=== PATIENT | female | born 1955 | race Caucasian/White ===

== ENCOUNTER 2020-05-14 22:39 | Inpatient (IN) ==
--- NOTE | 2020-05-14 23:17 | ERNOTE ---
Trauma/Assault HPI - General Stated Complaint: FALL Time Seen by Provider: 05/14/20 23:08 Source: patient Exam Limitations: no limitations - Immun/Allergies/Home Medications Immunizations: IMMUNIZATION HX Immunizations Up to Date No History of Influenza Vaccine No Hx Pneumococcal Vaccination No Allergies/Adverse Reactions: Allergies No Known Allergies Allergy (Unverified 05/14/20 23:16) Home Medications: HOME MEDICATIONS Atenolol [Tenormin] 50 mg PO DAILY 05/14/20 [Last Taken Unknown] Hydrochlorothiazide 12.5 mg PO DAILY 05/14/20 [Last Taken Unknown] [place] Oil/[place]-3 Fatty Acids [Fish Oil] 1,200 mg PO DAILY 05/14/20 [Last Taken Unknown] - History of Present Illness Narrative: Patient states she slipped on wet concrete at work falling onto her left side. She is currently lying on her right side and does not want to be moved from that position. She denies any other injuries. She denies loss of consciousness. Location Occurred: Reports: work Pain Location: Reports: lower extremity Method of Injury: Reports: fall Severity: moderate Modifying Factors - (Improves): Reports: immobilization Modifying Factors - (Worsens): Reports: movement Loss of Consciousness: Reports: no loss of consciousness Associated Symptoms - Trauma: Reports: denies symptoms Review of Systems - Review of Systems Constitutional: Absent: recent illness, fever, chills EYE: Absent: vision changes ENT: Absent: nose congestion, nasal drainage Respiratory: Absent: shortness of breath, cough Cardiology: Absent: chest pain Gastrointestinal/Abdominal: Absent: nausea, vomiting Musculoskeletal: Present: See HPI, joint pain. Absent: back pain, neck pain Skin: Absent: rash, change in color Neurological: Absent: headache, dizziness/light-headedness, numbness, tingling Medical History (Last Reviewed 05/15/20 @ 00:46 by Elpidio Byrne DO) Hypertension Surgical History: Surgical History (Last Reviewed 05/15/20 @ 00:46 by Elpidio Byrne DO) H/O: hysterectomy Hx of tonsillectomy Social History: (Last Reviewed 05/15/20 @ 00:46 by Elpidio Byrne DO) Tobacco: Smoking Status: Current every day smoker Smoking packs per day: 1 Alcohol: alcohol intake: current alcohol intake frequency: a few times a week Substance Use: substance use type: does not use Physical Exam - Physical Exam General Appearance: Present: wd/wn, alert, no apparent distress Head Exam: Present: normal inspection, no evidence of injury Eye Exam: Normal inspection: bilateral Neck: Present: normal inspection, nontender, supple, full range of motion Respiratory: Present: no respiratory distress, no accessory muscle use Gastrointestinal/Abdominal: Present: nontender, nondistended, soft Back Exam: Present: normal inspection, normal range of motion, no CVA tenderness, no vertebral tenderness Extremity Exam: Present: normal except - - Enteritis of left hip and left knee. Otherwise nontender. No obvious deformities or shortening.. Absent: joint redness, joint swelling Neurological Exam: Present: alert, oriented, normal mood/affect, no motor/sensory deficits Skin Exam: Present: normal color, warm/dry Lymphatic Exam: Present: no adenopathy Detailed Trauma Exam Best Eye Response ([place]): (4) open spontaneously Best Verbal Response ([place]): (5) oriented Best Motor Response ([place]): (6) obeys commands [place] Total: 15 Nexus Clearance: Present: Nexus criteria negative - C-Spine cleared by: Neg history & exam - T, L-Spine cleared by: Neg hx and exam - Long Board: Back visualized Progress - Results and Orders Patient's Lab Results:: I have reviewed the patient's lab results. Results and Orders: Laboratory Tests 05/15/20 05/15/20 01:25 01:25 WBC 16.1 H Hgb 13.6 Hct 39.9 Plt Count 146 L Neutrophils % 80.2 H Sodium 139 Potassium 2.9 L Chloride 103 Carbon Dioxide 24.8 Anion Gap 14.1 H BUN 20 Creatinine 1.03 Random Glucose 128 H Calcium 9.3 Total Bilirubin 0.5 AST 15 ALT 20 - Vital Signs Patient's Vital Signs:: I have reviewed the patient's vital signs. Vital Signs: Vital Signs 05/14/20 22:46 Temperature 37.6 C Pulse Rate 74 Respiratory Rate 16 Blood Pressure 126/83 O2 Sat by Pulse Oximetry 98 - Progress/Reassessment Chief Complaint: Fall Progress Note-Subjective: 05/15/20 00:[address] Kumar he agrees to accept the patient and assess for surgery in the morning. He would like medicine to admit the patient and he will consult. I spoke with Dr. Blanchard and she agrees to accept the patient and clear for surgery in the morning. Departure Clinical Impression: Intertrochanteric fracture of left femur Qualifiers: Encounter type: initial encounter Fracture type: closed Fracture alignment: displaced Qualified Code(s): S72.142A - Displaced intertrochanteric fracture of left femur, initial encounter for closed fracture - Departure Disposition: Still a patient Condition: Stable Critical Care Time - Critical Care Critical Time Spent:: No
[2020-05-14] MEDS ORDERED: MORPHINE SULFATE 2 MG/ML DISP.SYRIN IV ONE (23:47)
[2020-05-15 01:40] LABS: Hematocrit 39.9 % (37.0-47.0); Hemoglobin 13.6 gm/dL (12.5-16.0); Mean Cell Volume 88.7 fl (78-100); Mean Corpuscular Hemoglobin 30.2 pg (27-31); Mean Corpuscular Hgb Conc 34.1 g/dl (32-36); Mean Platelet Volume 11.4 fl (8-12.5); Neutrophil # 12.9 K/mm3 (1.3-6.0); Neutrophil % 80.2 % (42-75.0); Platelet Count 146 K/mm3 (150-450); Red Cell Distribution Width 11.8 % (11.5-14.0); White Blood Count 16.1 K/mm3 (4.0-10.5)
[2020-05-15 01:54] LABS: Albumin * 3.7 gm/dl (3.4-5.0); Anion Gap 14.1 mmol/L (6.8-13.8); BUN/Creatinine Ratio 19.4 (9.0-21.6); Bilirubin, Total 0.5 mg/dL (0.0-1.1); Ca. Corrected For Albumin 9.2 mg/dL (8.4-10.2); Calcium * 9.3 mg/dL (7.9-10.9); Carbon Dioxide 24.8 mmol/L (24-32.6); Potassium 2.9 mmol/L (3.4-4.6); Total Protein 6.5 gm/dL (6.2-8.2)
[2020-05-15] MEDS ORDERED: POTASSIUM BICARBONATE/CIT AC 25 MEQ TABLET.EFF PO ONE (02:33)
[2020-05-15] MEDS ORDERED: ONDANSETRON HCL/PF 2 MG/ML VIAL IV PRN (02:35)
[2020-05-15] MEDS: MORPHINE SULFATE 2 MG/ML DISP.SYRIN IV PRN ×3 (02:52→09:12)
[2020-05-15] MEDS: NORMAL SALINE 1,000 ML IV PRN ×2 (03:27→16:43)
--- NOTE | 2020-05-15 08:07 | CONS ---
- Reason for consultation (1) Intertrochanteric fracture of left femur Date of Service: 05/15/20 HPI - General Date of Service: 05/15/20 Narrative: 64-year-old female presents status post fall to the ED. X-rays revealed a left intertrochanteric femur fracture. Patient notes no previous hip injuries. She notes her pain is worse with movement better with rest. She rates her pain is well controlled at this time. She denies any other significant radiating symptoms or bothering factors. She otherwise denies any other significant history, she is not on any significant blood thinners. Source: patient Exam Limitations: no limitations - History of Present Illness Allergies/Adverse Reactions: Allergies No Known Allergies Allergy (Unverified 05/15/20 03:04) Home Medications: Home Medications Medication Instructions Recorded Last Taken Atenolol [Tenormin] 50 mg PO DAILY 05/14/20 Unknown Hydrochlorothiazide 12.5 mg PO DAILY 05/14/20 Unknown [place] Oil/[place]-3 Fatty Acids 1,200 mg PO DAILY 05/14/20 Unknown [Fish Oil] Irqdo-Zifzahm-Ohzrarsl Tablet 1 tab DAILY 05/15/20 Unknown Medications - Medications Current Medications: Current Medications Sodium Chloride (Sodium Chloride 0.9%) 1,000 mls @ 75 mls/hr IV .[id number] PRN PRN Reason: HYDRATION Stop: 06/14/20 02:34 Last Admin: 05/15/20 03:27 Dose: 75 mls/hr Documented by: Morphine Sulfate (Morphine Sulfate) 1 mg IV Q1H PRN PRN Reason: Pain Stop: 06/14/20 02:35 Last Admin: 05/15/20 06:43 Dose: 1 mg Documented by: Physical Examination - Exam Vital Signs: Vital Signs - Last Taken Temp 37.2 C 05/15/20 06:55 Pulse 86 05/15/20 06:55 Resp 12 05/15/20 06:55 BP 121/60 05/15/20 06:55 Pulse Ox 94 05/15/20 06:55 O2 Oxygen Delivery Method Room Air Constitutional: Present: Alert, Oriented x3, Cooperative, No distress Respiratory: Present: no respiratory distress Extremity: Present: other - Left lower extremity--> sensation intact light touch, 5/5 plantar flexion dorsiflexion ankle, distal capillary refill brisk, no obvious wounds, mild deformity of external rotation at the hip Skin Exam: Present: normal color, warm/dry Appearance: Present: appropriate appearance Eye contact: Present: cooperative Thoughts: Present: normal thought pattern - Results and Findings: Lab/Microbiology results last 24 hrs: Abnormal/Pending Laboratory Last 24 HRS 05/15/20 05/15/20 01:25 01:25 WBC 16.1 H Plt Count 146 L Immature Gran % (Auto) 0.70 H Immature Gran # (Auto) 0.11 H Neutrophils % 80.2 H Lymphocytes % 13.9 L Neutrophils # 12.9 H Potassium 2.9 L Anion Gap 14.1 H Est GFR (Non-Af Amer) 57 L Random Glucose 128 H - Assessments/Findings (1) Intertrochanteric fracture of left femur Problem: Acute Qualifiers: Encounter type: initial encounter Fracture type: closed Fracture alignment: displaced Qualified Code(s): S72.142A - Displaced intertrochanteric fracture of left femur, initial encounter for closed fracture Plan - Plan Plan: 64-year-old female admitted with a left intertrochanteric femur fracture. Patient is otherwise fairly healthy, awaiting medicine clearance. Discussed with patient conservative or surgical intervention as well as risk versus benefits including but not limited to infection, bleeding, malunion versus nonunion fracture healing, continued pain, reaction stroke risk, inherent risk of surgery. Patient expressed understanding wishes to proceed with left ce phalo-medullary nailing of femur fracture. Procedure plan to do on 05/15/2020 pending medical clearance. Patient expressed understanding and wishes to proceed with this option. Consent was obtained all questions were answered. Patient was COVID-19 tested prior to admission. Patient will continue with pain management and will continue in the hospital stay status post surgery.
[2020-05-15] MEDS: RINGER'S SOLUTION,LACTATED 1,000 ML IV PRN ×2 (08:44→13:40)
--- NOTE | 2020-05-15 09:09 | ANES ---
Anesthesia Pre Procedure Eval Vitals/Labs: Last Vital Signs Temp 37.2 C 05/15/20 06:55 Pulse 86 05/15/20 06:55 Resp 12 05/15/20 06:55 BP 121/60 05/15/20 06:55 Pulse Ox 94 05/15/20 06:55 HOME MEDICATIONS Atenolol [Tenormin] 50 mg PO DAILY 05/14/20 [Last Taken Unknown] Hydrochlorothiazide 12.5 mg PO DAILY 05/14/20 [Last Taken Unknown] [place] Oil/[place]-3 Fatty Acids [Fish Oil] 1,200 mg PO DAILY 05/14/20 [Last Taken Unknown] Tshix-Prdkkvl-Rqveipxp Tablet 1 tab DAILY 05/15/20 [Last Taken Unknown] Allergies/Adverse Reactions: Allergies Allergy/AdvReac Type Severity Reaction Status Date / Time No Known Allergies Allergy Unverified 05/15/20 03:04 - Planned Procedure Planned Procedure: L INTERTROCHANTERIC HIP FX Medication List Reviewed:: Yes Allergies Verified: Yes Medical History (Last Reviewed 05/15/20 @ 09:07 by Andre Oden CRNA) Hypertension Surgical History (Last Reviewed 05/15/20 @ 09:07 by Andre Oden CRNA) H/O: hysterectomy Hx of tonsillectomy - Family Anesthesia History Family History:: no untoward family reactions to anesthesia - Airway/Neck/Teeth Within Normal Limits:: Yes Denture Type: Partial lower Neck Exam: full range of motion Mallampatti Score: 2 Thyromental (T-M) distance: > 6 cm Mandibulo Hyoid distance: > 3 cm - Respiratory Respiratory Physical: lungs clear Smoking Status: Current every day smoker Discussed smoking cessation including day of surgery: Yes Sleep Apnea currently treated: No Sleep Apnea by current assessment: No - Cardiovascular Cardiac History: hypertension Tolerate Activity: Good Heart Sounds: S1 & S2, Regular - Gastrointestinal NPO since: [place] - Anesthesia Assessment and Plan ASA Class: PS, II Anesthesia Type Plan: Spinal Planned difficult intubation/equipment available: No
[2020-05-15] MEDS ORDERED: POTASSIUM CHLORIDE 20 MEQ in DEXTROSE 5%-0.5 NORMAL SALINE 990 ML IV SCH (10:00)
--- NOTE | 2020-05-15 10:02 | HP ---
Chief Complaint - Chief Complaint Date of Service: 05/15/20 Time of Service: 09:27 Chief Complaint: Left hip pain History of Present Illness: 64-year-old female with a past medical history of hypertension, smokes half a pack a day presents from work status post fall. She is was found to have a left intertrochanteric fracture of her acute, displaced, angulated, mildly comminuted left intertrochanteric enteric fracture on x-ray. Knee x-ray was negative for fracture. Chest x-ray was unremarkable. Vitals are stable, blood work shows mild hypokalemia at 2.9, a leukocytosis of 16.1. Orthopedic surgery was consulted. Medical History (Last Reviewed 05/15/20 @ 09:07 by Andre Oden CRNA) Hypertension Surgical History: Surgical History (Last Reviewed 05/15/20 @ 09:07 by Andre Oden CRNA) H/O: hysterectomy Hx of tonsillectomy Family History: Family History (Last Updated 05/15/20 @ 10:03 by Megan Blanchard MD) Other Family history non-contributory Social History: (Last Reviewed 05/15/20 @ 03:04 by Nhi Hoff RN) Tobacco: Smoking Status: Current every day smoker Smoking packs per day: 1 Alcohol: alcohol intake: current alcohol intake frequency: a few times a week Substance Use: substance use type: does not use Review Of Systems (GEN) - Review of Systems Generalized/Overall Review: Absent: Chills, Fever Respiratory: Absent: Shortness of Breath Cardiac: Absent: Chest Pain, Palpitations Abdominal: Absent: Abdominal Pain Musculoskeletal: Present: Joint Pain - Left hip Misc: All systems neg except as marked Immunizations: IMMUNIZATION HX Immunizations Up to Date No History of Influenza Vaccine No Hx Pneumococcal Vaccination No Allergies/Adverse Reactions: Allergies Allergy/AdvReac Type Severity Reaction Status Date / Time No Known Allergies Allergy Unverified 05/15/20 03:04 Home Medications: HOME MEDICATIONS Atenolol [Tenormin] 50 mg PO DAILY 05/14/20 [Last Taken Unknown] Hydrochlorothiazide 12.5 mg PO DAILY 05/14/20 [Last Taken Unknown] [place] Oil/[place]-3 Fatty Acids [Fish Oil] 1,200 mg PO DAILY 05/14/20 [Last Taken Unknown] Nxwrl-Ooqhraj-Knszlqfz Tablet 1 tab DAILY 05/15/20 [Last Taken Unknown] Exam - Exam Vital Signs: Vital Signs - Last Taken Temp 37.2 C 05/15/20 06:55 Pulse 86 05/15/20 06:55 Resp 12 05/15/20 06:55 BP 121/60 05/15/20 06:55 Pulse Ox 94 05/15/20 06:55 Constitutional: Present: Alert, Cooperative, Well developed, Well nourished, No distress, Middle aged ENT Exam: Present: hearing grossly normal, moist mucous membranes Eye Exam: bilateral eye: normal inspection, PERRL, EOMI Neck: Present: non-tender, supple. Absent: lymphadenopathy (R), lymphadenopathy (L) Respiratory: Present: lungs clear - Anterior lung farah bilaterally, no respiratory distress, no accessory muscle use, No wheezing. Absent: crackles, rhonchi Cardiovascular/Chest: Present: normal peripheral pulses, regular rate, rhythm, no edema, no murmur Peripheral Pulses: dorsalis-pedis (R): 1+, dorsalis-pedis (L): 1+ Abdomen: Present: Normal bowel sounds, soft, nontender Extremity: Present: no pedal edema, other - Left hip externally rotated. Skin Exam: Present: normal color, warm/dry Neurologic: Present: alert, normal mood/affect Appearance: Present: appropriate appearance, appropriate insight Eye contact: Present: cooperative Thoughts: Present: normal thought pattern, normal mood /affect Diagnostic Studies: Abnormal Lab Results 05/15/20 05/15/20 Range/Units 01:25 01:25 WBC 16.1 H (4.0-10.5) K/mm3 Plt Count 146 L (150-450) K/mm3 Immature Gran % (Auto) 0.70 H (0.001-0.429) % Immature Gran # (Auto) 0.11 H (0.000-0.0310) K/mm3 Neutrophils % 80.2 H (42-75.0) % Lymphocytes % 13.9 L (20-51) % Neutrophils # 12.9 H (1.3-6.0) K/mm3 Potassium 2.9 L (3.4-4.6) mmol/L Anion Gap 14.1 H (6.8-13.8) mmol/L Est GFR (Non-Af Amer) 57 L (60-130) mL/min Random Glucose 128 H (70-110) mg/dL Laboratory Results WBC 16.1 K/mm3 (4.0-10.5) H 05/15/20 01:25 RBC 4.50 M/mm3 (4.2-5.4) 05/15/20 01:25 Hgb 13.6 gm/dL (12.5-16.0) 05/15/20 01:25 Hct 39.9 % (37.0-47.0) 05/15/20 01:25 MCV 88.7 fl (78-100) 05/15/20 01:25 MCH 30.2 pg (27-31) 05/15/20 01:25 MCHC 34.1 g/dl (32-36) 05/15/20 01:25 RDW 11.8 % (11.5-14.0) 05/15/20 01:25 Plt Count 146 K/mm3 (150-450) L 05/15/20 01:25 MPV 11.4 fl (8-12.5) 05/15/20 01:25 Immature Gran % (Auto) 0.70 % (0.001-0.429) H 05/15/20 01:25 Immature Gran # (Auto) 0.11 K/mm3 (0.000-0.0310) H 05/15/20 01:25 Neutrophils % 80.2 % (42-75.0) H 05/15/20 01:25 Lymphocytes % 13.9 % (20-51) L 05/15/20 01:25 Monocytes % 4.8 % (0.0-9) 05/15/20 01:25 Eosinophils % 0.3 % (0.0-3.0) 05/15/20 01:25 Basophils % 0.1 % (0.0-1.0) 05/15/20 01:25 Nucleated RBC % 0.0 k/mm3 (0-1) 05/15/20 01:25 Neutrophils # 12.9 K/mm3 (1.3-6.0) H 05/15/20 01:25 Lymphocytes # 2.25 k/mm3 (1.5-3.5) 05/15/20 01:25 Monocytes # 0.8 k/mm3 (0.0-1.0) 05/15/20 01:25 Eosinophils # 0.1 k/mm3 (0.0-0.7) 05/15/20 01:25 Absolute Basophils 0.0 k/mm3 (0.0-0.1) 05/15/20 01:25 Sodium 139 mmol/L (132-142) 05/15/20 01:25 Plasma Sodium 139 mmol/L (130-142) 05/15/20 01:25 Potassium 2.9 mmol/L (3.4-4.6) L 05/15/20 01:25 Chloride 103 mmol/L (97-106) 05/15/20 01:25 Carbon Dioxide 24.8 mmol/L (24-32.6) 05/15/20 01:25 Anion Gap 14.1 mmol/L (6.8-13.8) H 05/15/20 01:25 BUN 20 mg/dL (3-23) 05/15/20 01:25 Creatinine 1.03 mg/dL (0.4-1.4) 05/15/20 01:25 Est GFR (Non-Af Amer) 57 mL/min (60-130) L 05/15/20 01:25 BUN/Creatinine Ratio 19.4 (9.0-21.6) 05/15/20 01:25 Random Glucose 128 mg/dL (70-110) H 05/15/20 01:25 Calcium 9.3 mg/dL (7.9-10.9) 05/15/20 01:25 Calcium Adj for Albumin 9.2 mg/dL (8.4-10.2) 05/15/20 01:25 Total Bilirubin 0.5 mg/dL (0.0-1.1) 05/15/20 01:25 AST 15 U/L (0-48) 05/15/20 01:25 ALT 20 U/L (19-67) 05/15/20 01:25 Alkaline Phosphatase 52 U/L (50-170) 05/15/20 01:25 Total Protein 6.5 gm/dL (6.2-8.2) 05/15/20 01:25 Albumin 3.7 gm/dl (3.4-5.0) 05/15/20 01:25 SARS-CoV-2 (PCR) Not detected (NotDetected) 05/15/20 01:25 Assessment/Plan - Narrative Narrative: 64-year-old female with a past medical history of hypertension, smokes half a pack a day presents from work status post fall. She is was found to have a left intertrochanteric fracture of her acute, displaced, angulated, mildly comminuted left intertrochanteric enteric fracture on x-ray. Knee x-ray was negative for fracture. Chest x-ray was unremarkable. Vitals are stable, blood work shows mild hypokalemia at 2.9, a leukocytosis of 16.1. Leukocytosis may be reactive secondary to the hip fracture. Orthopedic surgery was consulted. She is medically cleared for surgery. Plan #1 replete potassium as needed #2 continue with pain management #3 CBC and CMP in the morning #4 resume home medications tomorrow morning. #5 orthopedic surgery on board - Assessment/Plan (1) Intertrochanteric fracture of left femur Problem: Acute Qualifiers: Encounter type: initial encounter Fracture type: closed Fracture alignment: displaced Qualified Code(s): S72.142A - Displaced intertrochanteric fracture of left femur, initial encounter for closed fracture (2) Hypertension Problem: Acute Qualifiers: Hypertension type: essential hypertension Qualified Code(s): I10 - Essential (primary) hypertension (3) Leukocytosis Problem: Acute (4) Hypokalemia Problem: Acute
[2020-05-15] MEDS: POTASSIUM CHLORIDE IN WATER 100 ML IV SCH ×2 (10:45→12:02)
[2020-05-15] MEDS ORDERED: ceFAZolin SODIUM 1 GM VIAL ONE (12:10)
[2020-05-15] MEDS ORDERED: MIDAZOLAM HCL/PF 5 MG/ML VIAL ONE (12:36)
[2020-05-15] MEDS ORDERED: BUPIVACAINE HCL/PF 10 ML VIAL ONE (12:37)
[2020-05-15] MEDS ORDERED: PROPOFOL VIAL IV ONE (12:37)
[2020-05-15] MEDS ORDERED: diphenhydrAMINE HCL 50 MG/ML VIAL IV PRN (15:54)
[2020-05-15] MEDS ORDERED: MAGNESIUM HYDROXIDE 30 ML UDC PO PRN (15:54)
[2020-05-15] MEDS ORDERED: MAG HYDROX/ALUMINUM HYD/SIMETH 30 ML UDC PO PRN (15:54)
[2020-05-15] MEDS ORDERED: ZOLPIDEM TARTRATE 5 MG TABLET PO PRN (15:54)
[2020-05-15] MEDS ORDERED: ACETAMINOPHEN 500 MG TABLET PO PRN (15:54)
--- NOTE | 2020-05-15 16:02 | OR ---
Operative Report - Dictated Report Narrative: Date: 05/15/2020 Surgeon: Davide Kumar M.D. Leaded Glass Installer: Tereso Lema PA-C (provided an essential set of skilled educated handset assisted with transfer, positioning, prepping, draping, placement of instruments, insertion of implants, irrigation, closure wounds, and placement of dressings all which could not be performed by the available surgical crew) Preoperative diagnosis: Closed comminuted displaced left sub-and ramirez- trochanteric femur fracture Postoperative diagnosis: Closed comminuted displaced left sub-and ramirez- trochanteric femur fracture Operations and procedures: 1. Closed reduction, cephalo-medullary fixation left comminuted sub-and ramirez- trochanteric femur fracture (please add 2 2 modifier due to the fact that this fracture was more unstable and difficult to fix compared to the standard fracture requiring additional time, risk, assistance, implants) 2. Intraoperative interpretation of radiographs Anesthesia: Spinal Specimens: None Estimated blood loss: 150 Milliliters Retained implants: [employer] Trigen InterTAN 130 degree size 10 mm by 38 centimeter nail with 100 millimeter lag screw and 95 millimeter compression screw, with distal locking screws, [employer] cerclage cable Complications: None Indications for procedure: Mrs. Celaya is a 64-year-old female who injured the left leg after a ground- level fall sustained at work. They were admitted to the hospital after being evaluated in the emergency department. Once the medical provider felt that they were stable for surgical treatment, the risks and benefits alternatives were discussed. The risks of , blood clots, bleeding, infection, nerve/tendon/blood vessel injury, malunion, nonunion, failure of implants, painful implants, arthrosis, and need for additional procedures were discussed. The extremity was marked and consent was obtained on the floor. Procedure: After marking the operative extremity on the floor, the patient was taken to the operating room. A timeout was performed. IV antibiotics consisting of Ancef were administered. A spinal anesthetic was induced by anesthesia, and the patient was then placed onto a fracture table with a well-padded perineal post. The nonoperative leg was placed in a well-padded traction boot in slight ext ension without any traction with an SCD on the leg. The operative leg was placed in a well-padded traction boot. Longitudinal traction, internal rotation, and flexion were utilized in order to reduce the fracture. Preliminary images were attained utilizing C-arm in both the AP and lateral views. This confirmed that we had obtained adequate visualization of the fracture as well as reduction. Next the hip was then prepped and draped in a standard sterile fashion. Next the guidewire was placed percutaneously proximal to the greater trochanter to gian a starting point at the tip of the greater trochanter centered on the lateral view. This was passed down to the level below the lesser trochanter. A scalpel was utilized in order to dissect down to the greater trochanter in order to place the soft tissue protector down to bone. The entry drill was then placed down the proximal femur to the level of the lesser trochanter. A guidewire was then passed to the distal femur ensuring this was in the confines of the femur. This was measured. A series of reamers up to 12 mm was utilized with good cortical chatter. The proper size nail was then selected and impacted into place. The outrigger was utilized in order to confirm the appropriate depth of the nail. Initially the nail was placed however this displaced the subtrochanteric portion of the fracture and thus the nail was removed and a cerclage cable was utilized in order to reduce and stabilize the lower section of the fracture. This required a larger lateral incision as well as significant more dissection in order to safely pass the cable around the femur. We then tensioned the cable and preliminarily secured it. The nail was then re- impacted. This resulted in a much better reduced fracture and better alignment. Using the alignment device on the outrigger, an incision was made over the lateral femur. Sharp dissection was carried through the iliotibial band down to the proximal femur. The guidewire was placed into the femoral head in a center- center position on AP and lateral views. The tip-apex distance of less than 25 mm combined was obtained. Once we felt that we had placed a guidewire in the appropriate position, it was measured. Next the compression screw site was drilled through the lateral femoral cortex. This was then drilled down to the appropriate depth, again confirming that we are within the confines the bone. The derotational bar was then placed and the lag screw was drilled. The lag screw was then secured in place seating fully ensuring that we were within the confines of the bone. The compression screw was then inserted allowing for compression while releasing the traction on the leg. Using C-arm this was visualized to allow for compression across the fracture site. Once is felt that we had adequately stabilized the intertrochanteric fracture, the distal interlocking screw was placed in a static and dynamic position after obtaining perfect circles and doing a freehand drilling. It was confirmed to be the appropriate length and within the nail on both AP and lateral views. The nail was secured allowing for controlled compression and the outrigger was removed. The wounds were then thoroughly irrigated. Final images were obtained. The hip was placed through range of motion and showed no crepitance. The cerclage cable was cut flush. The deep fascia was closed with 0 Vicryl, the subcutaneous tissue with 3-0 Vicryl, and the skin was closed with contreras. Sterile dressings of Xeroform, 4 x 4, and tape were applied. All sponge, sharp, and instrument counts were correct prior to closing the wounds. The patient was then awoken and transferred to the postanesthesia care unit in stable condition.
--- NOTE | 2020-05-15 16:17 | ANES ---
Post Anesthesia Discharge - Transfer of Care Transfer of Care handoff given to nurse: Yes - Discharge from PACU Discharge from PACU when meets criteria: Yes - Alert and comfortable.
--- NOTE | 2020-05-15 16:38 | ANES ---
Post Anesthesia Assessment - Vital Signs Vitals: Last Vital Signs Temp 36.6 C 05/15/20 16:30 Pulse 72 05/15/20 16:30 Resp 16 05/15/20 16:30 BP 120/85 05/15/20 16:30 Pulse Ox 99 05/15/20 16:30 Airway Patency: Normal - Mental Status Level Of Consciousness: Awake, Alert, Appropriate - Pain Level Pain Score: 0 - N/V Assessment Nausea/Vomiting Presence: None Dehydration:: No
[2020-05-15] MEDS: ceFAZolin SODIUM 1 GM in DEXTROSE 5 % IN WATER 100 ML IV SCH ×2 (17:00)
[2020-05-15] MEDS: SENNOSIDES/DOCUSATE SODIUM 1 TAB TABLET PO SCH (20:40)
[2020-05-15] MEDS: oxyCODONE HCL/ACETAMINOPHEN 1 TAB TABLET PO PRN (21:16)
[2020-05-16] MEDS: ceFAZolin SODIUM 1 GM in DEXTROSE 5 % IN WATER 100 ML IV SCH ×4 (00:02→05:11)
[2020-05-16] MEDS ORDERED: RINGER'S SOLUTION,LACTATED 1,000 ML IV PRN (06:00)
[2020-05-16] MEDS ORDERED: ceFAZolin SODIUM 1 GM VIAL IV PRN (06:00)
[2020-05-16 06:33] LABS: Albumin * 2.6 gm/dl (3.4-5.0); Anion Gap 11.3 mmol/L (6.8-13.8); BUN/Creatinine Ratio 14.5 (9.0-21.6); Bilirubin, Total 0.7 mg/dL (0.0-1.1); Ca. Corrected For Albumin 8.9 mg/dL (8.4-10.2); Calcium * 8.1 mg/dL (7.9-10.9); Carbon Dioxide 25.2 mmol/L (24-32.6); Potassium 3.5 mmol/L (3.4-4.6); Total Protein 5.1 gm/dL (6.2-8.2)
[2020-05-16 06:37] LABS: Hematocrit 29.5 % (37.0-47.0); Hemoglobin 10.1 gm/dL (12.5-16.0); Mean Cell Volume 89.9 fl (78-100); Mean Corpuscular Hemoglobin 30.8 pg (27-31); Mean Corpuscular Hgb Conc 34.2 g/dl (32-36); Mean Platelet Volume 11.5 fl (8-12.5); Neutrophil # 5.6 K/mm3 (1.3-6.0); Neutrophil % 67.6 % (42-75.0); Platelet Count 99 K/mm3 (150-450); Red Blood Count 3.28 M/mm3 (4.2-5.4); Red Cell Distribution Width 11.9 % (11.5-14.0); White Blood Count 8.3 K/mm3 (4.0-10.5)
[2020-05-16] MEDS: oxyCODONE HCL/ACETAMINOPHEN 1 TAB TABLET PO PRN ×3 (06:52→17:47)
[2020-05-16] MEDS: MULTIVITAMIN/IRON/FOLIC ACID 1 TAB TABLET PO SCH (10:34)
[2020-05-16] MEDS: HYDROCHLOROTHIAZIDE 12.5 MG CAPSULE PO SCH (10:34)
[2020-05-16] MEDS: ATENOLOL 50 MG TABLET PO SCH (10:34)
--- NOTE | 2020-05-16 11:17 | PN ---
Subjective - Date and Time Seen Date: 05/16/20 Time: 09:48 Subjective Narrative: Left hip pain with movement. Objective - Review of Systems Generalized/Overall Review: Denies: Chills, Fever Respiratory: Denies: Shortness of Breath Cardiac: Denies: Chest Pain Abdominal: Denies: Abdominal Pain Musculoskeletal Complaints: Reports: Joint Pain Misc: All systems neg except as marked - Vitals Vitals: Last Vital Signs Temp 36.8 C 05/16/20 10:00 Pulse 85 05/16/20 10:34 Resp 18 05/16/20 10:00 BP 121/57 05/16/20 10:34 Pulse Ox 100 05/16/20 10:00 - Abnormal Lab Findings Abnormal Lab Findings: Abnormal Lab Results 05/16/20 05/16/20 Range/Units 06:15 06:15 RBC 3.28 L (4.2-5.4) M/mm3 Hgb 10.1 L (12.5-16.0) gm/dL Hct 29.5 L (37.0-47.0) % Plt Count 99 L (150-450) K/mm3 Monocytes % 10.3 H (0.0-9) % Random Glucose 142 H (70-110) mg/dL ALT 17 L (19-67) U/L Alkaline Phosphatase 40 L (50-170) U/L Total Protein 5.1 L (6.2-8.2) gm/dL Albumin 2.6 L (3.4-5.0) gm/dl - Exam Constitutional: Present: Alert, Cooperative, Well developed, Well nourished, No distress, Middle aged ENT Exam: Present: hearing grossly normal, moist mucous membranes Neck: Present: non-tender, supple. Absent: lymphadenopathy (R), lymphadenopathy (L) Respiratory: Present: lungs clear, no respiratory distress, no accessory muscle use, No wheezing. Absent: crackles, rhonchi Cardiovascular/Chest: Present: normal peripheral pulses, regular rate, rhythm, no murmur Abdomen: Present: Normal bowel sounds, soft, nontender Extremity: Present: no pedal edema, other - Dressing in place on left lateral hip Skin Exam: Present: normal color, warm/dry Neurologic: Present: alert, normal mood/affect Appearance: Present: appropriate appearance Eye contact: Present: cooperative Thoughts: Present: normal thought pattern, normal mood /affect Cauti Physician Documentation - Urinary Catheter Management Urethral ([place]) Date of Insertion: 05/15/20 Time of Insertion: 01:41 Date of Removal: 05/16/20 Time of Removal: 08:33 Assessment/Plan Plan Narrative: 64-year-old female with a past medical history of hypertension, smokes half a pack a day presents from work status post fall. She is was found to have a left intertrochanteric fracture of her acute, displaced, angulated, mildly comminuted left intertrochanteric enteric fracture on x-ray. Knee x-ray was negative for fracture. Chest x-ray was unremarkable. Vitals are stable, blood work shows mild hypokalemia at 2.9, a leukocytosis of 16.1. Leukocytosis may be reactive secondary to the hip fracture. Orthopedic surgery was consulted. She is status post left closed reduction, cephalo-medullary fixation left comminuted sub-and peritrochanteric femur fracture on May 15, 2020. She is doing well and is started physical therapy no bowel movement today. She is eating and drinking well. She is urinating. Pain is controlled with Percocet. Plan #1 Potassium has normalized, replete potassium as needed #2 continue with pain management and bowel regimen #3 CBC and CMP in the morning #4 resume home medications #5 Continue rehab plan per orthopedic surgery #6 continue with physical therapy and Occupational Therapy - Problems/Diagnosis (1) Intertrochanteric fracture of left femur Problem: Acute Qualifiers: Encounter type: initial encounter Fracture type: closed Fracture alignment: displaced Qualified Code(s): S72.142A - Displaced intertrochanteric fracture of left femur, initial encounter for closed fracture (2) Hypertension Problem: Acute Qualifiers: Hypertension type: essential hypertension Qualified Code(s): I10 - Essential (primary) hypertension (3) Leukocytosis Problem: Acute (4) Hypokalemia Problem: Acute
--- NOTE | 2020-05-16 11:30 | PN ---
Subjective - Date and Time Seen Date: 05/16/20 Time: 07:40 Subjective Narrative: Patient overall reports no acute events. She states her pain is significantly improved from yesterday. Patient has not been up and ambulated yet with physical therapy. She denies any other acute concerns. She overall notes her pain is well controlled. She does not note any other significant radiating factors or modifying events. Objective - Vitals Vitals: Last Vital Signs Temp 36.8 C 05/16/20 10:00 Pulse 85 05/16/20 10:34 Resp 18 05/16/20 10:00 BP 121/57 05/16/20 10:34 Pulse Ox 100 05/16/20 10:00 - Abnormal Lab Findings Abnormal Lab Findings: Abnormal Lab Results 05/16/20 05/16/20 Range/Units 06:15 06:15 RBC 3.28 L (4.2-5.4) M/mm3 Hgb 10.1 L (12.5-16.0) gm/dL Hct 29.5 L (37.0-47.0) % Plt Count 99 L (150-450) K/mm3 Monocytes % 10.3 H (0.0-9) % Random Glucose 142 H (70-110) mg/dL ALT 17 L (19-67) U/L Alkaline Phosphatase 40 L (50-170) U/L Total Protein 5.1 L (6.2-8.2) gm/dL Albumin 2.6 L (3.4-5.0) gm/dl - Exam Constitutional: Present: Alert, Cooperative, No distress Respiratory: Present: no respiratory distress Extremity: Present: other - Left lower extremity--> bandages clean/dry/intact, sensation intact light touch, capillary refill brisk, diffuse mild tenderness about left hip, 5/5 plantar flexion/dorsiflexion ankle Appearance: Present: appropriate appearance Eye contact: Present: cooperative Thoughts: Present: normal thought pattern Cauti Physician Documentation - Urinary Catheter Management Urethral ([place]) Date of Insertion: 05/15/20 Time of Insertion: 01:41 Date of Removal: 05/16/20 Time of Removal: 08:33 Assessment/Plan Plan Narrative: -64-year-old female postop day 1 status post closed reduction, cephalo-medullary fixation left comminuted sub-and ramirez-trochanteric femur fracture -Partial weightbearing left lower extremity, use of assistive device, approximately 25% -PT/OT progress within restrictions -P.o. diet as tolerated -P.o. pain medication PRN -DVT prophylaxis: SCDs in bed, KIP sanjive knee-high, 6 weeks of anticoagulation -Chronic medical conditions per medicine team -Disposition: Continue to monitor patient until all postoperative goals are met, continue to work towards discharge planning - Problems/Diagnosis (1) Intertrochanteric fracture of left femur Problem: Acute Qualifiers: Encounter type: initial encounter Fracture type: closed Fracture alignment: displaced Qualified Code(s): S72.142A - Displaced intertrochanteric fracture of left femur, initial encounter for closed fracture
[2020-05-16] MEDS: SENNOSIDES/DOCUSATE SODIUM 1 TAB TABLET PO SCH (20:25)
[2020-05-17] MEDS: oxyCODONE HCL/ACETAMINOPHEN 1 TAB TABLET PO PRN ×4 (00:05→20:22)
[2020-05-17 06:39] LABS: Hematocrit 28.2 % (37.0-47.0); Hemoglobin 9.5 gm/dL (12.5-16.0); Mean Corpuscular Hemoglobin 30.6 pg (27-31); Mean Corpuscular Hgb Conc 33.7 g/dl (32-36); Mean Platelet Volume 11.3 fl (8-12.5); Neutrophil # 4.7 K/mm3 (1.3-6.0); Neutrophil % 56.5 % (42-75.0); Platelet Count 100 K/mm3 (150-450); Red Cell Distribution Width 11.9 % (11.5-14.0); White Blood Count 8.4 K/mm3 (4.0-10.5)
[2020-05-17 06:50] LABS: Albumin * 2.6 gm/dl (3.4-5.0); Anion Gap 11.2 mmol/L (6.8-13.8); BUN/Creatinine Ratio 13.6 (9.0-21.6); Bilirubin, Total 0.5 mg/dL (0.0-1.1); Ca. Corrected For Albumin 9.2 mg/dL (8.4-10.2); Calcium * 8.4 mg/dL (7.9-10.9); Carbon Dioxide 27.1 mmol/L (24-32.6); Potassium 3.3 mmol/L (3.4-4.6); Total Protein 5.5 gm/dL (6.2-8.2)
[2020-05-17] MEDS: ATENOLOL 50 MG TABLET PO SCH (08:10)
[2020-05-17] MEDS: HYDROCHLOROTHIAZIDE 12.5 MG CAPSULE PO SCH (08:10)
[2020-05-17] MEDS: MULTIVITAMIN/IRON/FOLIC ACID 1 TAB TABLET PO SCH (08:11)
[2020-05-17] MEDS ORDERED: POTASSIUM BICARBONATE/CIT AC 25 MEQ TABLET.EFF PO ONE (09:25)
--- NOTE | 2020-05-17 12:55 | PN ---
Subjective - Date and Time Seen Date: 05/17/20 Time: 10:30 Subjective Narrative: Overall she is stable, she is eating and drinking well and continues to have some pain in her left hip with movement. Objective - Review of Systems Generalized/Overall Review: Denies: Chills, Fever Respiratory: Denies: Shortness of Breath Cardiac: Denies: Chest Pain Abdominal: Denies: Abdominal Pain Musculoskeletal Complaints: Reports: Joint Pain - Left hip Misc: All systems neg except as marked - Vitals Vitals: Last Vital Signs Temp 35.8 C L 05/17/20 10:49 Pulse 80 05/17/20 10:49 Resp 16 05/17/20 10:49 BP 105/60 05/17/20 10:49 Pulse Ox 95 05/16/20 23:00 - Abnormal Lab Findings Abnormal Lab Findings: Abnormal Lab Results 05/17/20 05/17/20 Range/Units 06:33 06:33 RBC 3.10 L (4.2-5.4) M/mm3 Hgb 9.5 L (12.5-16.0) gm/dL Hct 28.2 L (37.0-47.0) % Plt Count 100 L (150-450) K/mm3 Immature Gran % (Auto) 0.50 H (0.001-0.429) % Immature Gran # (Auto) 0.04 H (0.000-0.0310) K/mm3 Monocytes % 11.2 H (0.0-9) % Potassium 3.3 L (3.4-4.6) mmol/L ALT 17 L (19-67) U/L Alkaline Phosphatase 41 L (50-170) U/L Total Protein 5.5 L (6.2-8.2) gm/dL Albumin 2.6 L (3.4-5.0) gm/dl - Exam Constitutional: Present: Alert, Cooperative, Well developed, Well nourished, No distress, Middle aged ENT Exam: Present: hearing grossly normal Neck: Present: non-tender, supple. Absent: lymphadenopathy (R), lymphadenopathy (L) Respiratory: Present: lungs clear, no respiratory distress, no accessory muscle use, No wheezing. Absent: crackles, rhonchi Cardiovascular/Chest: Present: normal peripheral pulses, regular rate, rhythm, no edema, no murmur Abdomen: Present: Normal bowel sounds, soft, nontender Extremity: Present: no pedal edema Skin Exam: Present: normal color, warm/dry Neurologic: Present: alert, normal mood/affect Appearance: Present: appropriate appearance, appropriate insight Eye contact: Present: cooperative Thoughts: Present: normal thought pattern, normal mood /affect Cauti Physician Documentation - Urinary Catheter Management Urethral ([place]) Date of Insertion: 05/15/20 Time of Insertion: 01:41 Date of Removal: 05/16/20 Time of Removal: 08:33 Assessment/Plan Plan Narrative: 64-year-old female with a past medical history of hypertension, smokes half a pack a day presents from work status post fall. She is was found to have a left intertrochanteric fracture of her acute, displaced, angulated, mildly comminuted left intertrochanteric enteric fracture on x-ray. Knee x-ray was negative for fracture. Chest x-ray was unremarkable. Vitals are stable, blood work shows m ild hypokalemia at 2.9, a leukocytosis of 16.1. Leukocytosis may be reactive secondary to the hip fracture. Orthopedic surgery was consulted. She is status post left closed reduction, cephalo-medullary fixation left comminuted sub-and peritrochanteric femur fracture on May 15, 2020. She is doing well and is started physical therapy no bowel movement today. She is eating and drinking well. She is urinating. Pain is controlled with Percocet. Plan #1 Replete potassium as needed #2 continue with pain management and bowel regimen #3 CBC and CMP in the morning #4 resume home medications #5 Continue rehab plan per orthopedic surgery #6 continue with physical therapy and Occupational Therapy - Problems/Diagnosis (1) Intertrochanteric fracture of left femur Problem: Acute Qualifiers: Encounter type: initial encounter Fracture type: closed Fracture alignment: displaced Qualified Code(s): S72.142A - Displaced intertrochanteric fracture of left femur, initial encounter for closed fracture (2) Hypertension Problem: Acute Qualifiers: Hypertension type: essential hypertension Qualified Code(s): I10 - Ess ential (primary) hypertension (3) Leukocytosis Problem: Acute (4) Hypokalemia Problem: Acute
[2020-05-17] MEDS: RIVAROXABAN 20 MG TABLET PO SCH (13:22)
[2020-05-17] MEDS: SENNOSIDES/DOCUSATE SODIUM 1 TAB TABLET PO SCH (20:22)
[2020-05-18] MEDS: oxyCODONE HCL/ACETAMINOPHEN 1 TAB TABLET PO PRN ×2 (03:39→07:57)
[2020-05-18 06:46] LABS: Hematocrit 28.4 % (37.0-47.0); Hemoglobin 9.5 gm/dL (12.5-16.0); Mean Cell Volume 90.2 fl (78-100); Mean Corpuscular Hemoglobin 30.2 pg (27-31); Mean Corpuscular Hgb Conc 33.5 g/dl (32-36); Mean Platelet Volume 11.5 fl (8-12.5); Neutrophil # 7.1 K/mm3 (1.3-6.0); Neutrophil % 72.9 % (42-75.0); Platelet Count 115 K/mm3 (150-450); Red Blood Count 3.15 M/mm3 (4.2-5.4); Red Cell Distribution Width 11.9 % (11.5-14.0); White Blood Count 9.8 K/mm3 (4.0-10.5)
[2020-05-18 07:02] LABS: Albumin * 2.5 gm/dl (3.4-5.0); Anion Gap 11.1 mmol/L (6.8-13.8); BUN/Creatinine Ratio 13.3 (9.0-21.6); Bilirubin, Total 0.5 mg/dL (0.0-1.1); Ca. Corrected For Albumin 9.9 mg/dL (8.4-10.2); Carbon Dioxide 28.3 mmol/L (24-32.6); Potassium 3.4 mmol/L (3.4-4.6); Total Protein 6.1 gm/dL (6.2-8.2)
[2020-05-18] MEDS: ATENOLOL 50 MG TABLET PO SCH (08:04)
[2020-05-18] MEDS: HYDROCHLOROTHIAZIDE 12.5 MG CAPSULE PO SCH (08:04)
[2020-05-18] MEDS: MULTIVITAMIN/IRON/FOLIC ACID 1 TAB TABLET PO SCH (08:04)
[2020-05-18] MEDS: RIVAROXABAN 20 MG TABLET PO SCH (08:04)
--- NOTE | 2020-05-18 10:09 | DS ---
(1) Intertrochanteric fracture of left femur Problem: Acute Qualifiers: Encounter type: initial encounter Fracture type: closed Fracture alignment: displaced Qualified Code(s): S72.142A - Displaced intertrochanteric fracture of left femur, initial encounter for closed fracture (2) Hypertension Problem: Acute Qualifiers: Hypertension type: essential hypertension Qualified Code(s): I10 - Essential (primary) hypertension (3) Leukocytosis Problem: Acute (4) Hypokalemia Problem: Acute Hospital Course: 64-year-old female with a past medical history of hypertension, smokes half a pack a day presents from work status post fall. She is was found to have a left intertrochanteric fracture of her acute, displaced, angulated, mildly comminuted left intertrochanteric enteric fracture on x-ray. Knee x-ray was negative for fracture. Chest x-ray was unremarkable. Vitals are stable, blood work shows mild hypokalemia at 2.9, a leukocytosis of 16.1. Leukocytosis may be reactive secondary to the hip fracture. Orthopedic surgery was consulted. She is status post left closed reduction, cephalo-medullary fixation left comminuted sub-and peritrochanteric femur fracture on May 15, 2020. She is doing well and has started physical therapy. She is eating and drinking well. She is urinating passing gas but has not had a bowel movement. She states she does not typically have a bowel movement on a daily basis. Pain is controlled with Percocet. She is on Xarelto that was started on May 17, 2020 and per orthopedics she will be on it for the next 6 weeks. She had 2 episodes of hypokalemia that resolved with potassium supplementation. Her leukocytosis has also resolved. She is stable to be discharged home today. She will continue with outpatient physical therapy and follow-up with orthopedics as outpatient. She should follow-up with her PCP within the next few weeks. Procedures Performed: none Results and Findings: Lab Pending Results 05/15/20 01:25: WBC 16.1 H, RBC 4.50, Hgb 13.6, Hct 39.9, MCV 88.7, MCH 30.2, MCHC 34.1, RDW 11.8, Plt Count 146 L, MPV 11.4, Immature Gran % (Auto) 0.70 H, Immature Gran # (Auto) 0.11 H, Neutrophils % 80.2 H, Lymphocytes % 13.9 L, Monocytes % 4.8, Eosinophils % 0.3, Basophils % 0.1, Nucleated RBC % 0.0, Neutrophils # 12.9 H, Lymphocytes # 2.25, Monocytes # 0.8, Eosinophils # 0.1, Absolute Basophils 0.0 05/15/20 01:25: Sodium 139, Plasma Sodium 139, Potassium 2.9 L, Chloride 103, Carbon Dioxide 24.8, Anion Gap 14.1 H, BUN 20, Creatinine 1.03, Est GFR (Non-Af Amer) 57 L, BUN/Creatinine Ratio 19.4, Random Glucose 128 H, Calcium 9.3, Calcium Adj for Albumin 9.2, Total Bilirubin 0.5, AST 15, ALT 20, Alkaline Phosphatase 52, Total Protein 6.5, Albumin 3.7 05/15/20 01:25: SARS-CoV-2 (PCR) Not detected 05/16/20 06:15: WBC 8.3 D, RBC 3.28 L, Hgb 10.1 L, Hct 29.5 L, MCV 89.9, MCH 30.8, MCHC 34.2, RDW 11.9, Plt Count 99 L, MPV 11.5, Immature Gran % (Auto) 0.40, Immature Gran # (Auto) 0.03, Neutrophils % 67.6, Lymphocytes % 20.9, Monocytes % 10.3 H, Eosinophils % 0.7, Basophils % 0.1, Nucleated RBC % 0.0, Neutrophils # 5.6, Lymphocytes # 1.73, Monocytes # 0.9, Eosinophils # 0.1, Absolute Basophils 0.0 05/16/20 06:15: Sodium 137, Plasma Sodium 138, Potassium 3.5 D, Chloride 104, Carbon Dioxide 25.2, Anion Gap 11.3, BUN 12, Creatinine 0.83, Est GFR (Non-Af Amer) 74 D, BUN/Creatinine Ratio 14.5, Random Glucose 142 H, Calcium 8.1, Calcium Adj for Albumin 8.9, Total Bilirubin 0.7, AST 21, ALT 17 L, Alkaline Phosphatase 40 L, Total Protein 5.1 L, Albumin 2.6 L 05/17/20 06:33: WBC 8.4, RBC 3.10 L, Hgb 9.5 L, Hct 28.2 L, MCV 91.0, MCH 30.6, MCHC 33.7, RDW 11.9, Plt Count 100 L, MPV 11.3, Immature Gran % (Auto) 0.50 H, Immature Gran # (Auto) 0.04 H, Neutrophils % 56.5, Lymphocytes % 30.5, Monocytes % 11.2 H, Eosinophils % 1.2, Basophils % 0.1, Nucleated RBC % 0.0, Neutrophils # 4.7, Lymphocytes # 2.56, Monocytes # 0.9, Eosinophils # 0.1, Absolute Basophils 0.0 05/17/20 06:33: Sodium 137, Plasma Sodium 137, Potassium 3.3 L, Chloride 102, Carbon Dioxide 27.1, Anion Gap 11.2, BUN 11, Creatinine 0.81, Est GFR (Non-Af Amer) 76, BUN/Creatinine Ratio 13.6, Random Glucose 108, Calcium 8.4, Calcium Adj for Albumin 9.2, Total Bilirubin 0.5, AST 22, ALT 17 L, Alkaline Phosphatase 41 L, Total Protein 5.5 L, Albumin 2.6 L 05/18/20 06:41: WBC 9.8, RBC 3.15 L, Hgb 9.5 L, Hct 28.4 L, MCV 90.2, MCH 30.2, MCHC 33.5, RDW 11.9, Plt Count 115 L, MPV 11.5, Immature Gran % (Auto) 0.60 H, Immature Gran # (Auto) 0.06 H, Neutrophils % 72.9, Lymphocytes % 16.4 L, Monocytes % 9.0, Eosinophils % 0.8, Basophils % 0.3, Nucleated RBC % 0.0, Neutrophils # 7.1 H, Lymphocytes # 1.60, Monocytes # 0.9, Eosinophils # 0.1, Absolute Basophils 0.0 05/18/20 06:41: Sodium 136, Plasma Sodium 137, Potassium 3.4, Chloride 100, Carbon Dioxide 28.3, Anion Gap 11.1, BUN 12, Creatinine 0.90, Est GFR (Non-Af Amer) 67, BUN/Creatinine Ratio 13.3, Random Glucose 148 H D, Calcium 9.0, Calcium Adj for Albumin 9.9, Total Bilirubin 0.5, AST 29, ALT 20, Alkaline Phosphatase 42 L, Total Protein 6.1 L, Albumin 2.5 L Discharge Location: Home Disposition: Home self-care Condition: Stable Discharge Activity: Partial-Weight bearing - 50% weightbearing of left leg Discharge Diet: General/regular food Additional Patient Instructions (free text): Follow up with Harlan Thapa on 05-29-2020 at 10:45am. Prescriptions (Any new or edited meds): Magnesium Hydroxide [Milk Of Magnesia] 30 ml PO DAILY PRN #1 bottle PRN Reason: Constipation Transmission Status: Pending to [place], [place] oxyCODONE HCL/ACETAMINOPHEN [Percocet 5 MG/325 MG] 2 tab PO Q4H PRN #56 tab PRN Reason: Moderate Pain (Pain Scale 4-6) Transmission Status: Received by [place], [place] Sennosides/Docusate Sodium [Senna Plus 8.6-50 mg Softgel] 1 ea PO DAILY PRN #20 cap PRN Reason: Constipation Transmission Status: Pending to [place], [place] Rivaroxaban [Xarelto] 10 mg PO DAILY #40 tab Transmission Status: Pending to [place], [place] Complete Home Medications List: Complete Home Medication List: Atenolol [Tenormin] 50 mg PO DAILY 05/14/20 Hydrochlorothiazide 12.5 mg PO DAILY 05/14/20 [place] Oil/Oley-3 Fatty Acids [Fish Oil] 1,200 mg PO DAILY 05/14/20 Oxwng-Voyeagr-Mghabagh Tablet 1 tab DAILY 05/15/20 Magnesium Hydroxide [Milk Of Magnesia] 30 ml PO DAILY PRN #1 bottle 05/18/20 Rivaroxaban [Xarelto] 10 mg PO DAILY #40 tab 05/18/20 Sennosides/Docusate Sodium [Senna Plus 8.6-50 mg Softgel] 1 ea PO DAILY PRN #20 cap 05/18/20 oxyCODONE HCL/ACETAMINOPHEN [Percocet 5 MG/325 MG] 2 tab PO Q4H PRN #56 tab 05/18/20
--- NOTE | 2020-05-18 12:57 | PN ---
Subjective - Date and Time Seen Date: 05/17/20 Time: 15:00 Subjective Narrative: Doing well. She states that she is having a slightly more pain on her left leg today. She was able to walk some with therapy. Objective Objective Narrative: Left lower extremity: Thigh is swollen but soft, dressings dry, neurovascular intact, exam stable - Vitals Vitals: Last Vital Signs Temp 37.2 C 05/18/20 03:10 Pulse 91 05/18/20 08:04 Resp 20 05/18/20 03:10 BP 117/58 05/18/20 08:04 Pulse Ox 93 05/18/20 03:10 - Abnormal Lab Findings Abnormal Lab Findings: Abnormal Lab Results 05/18/20 05/18/20 Range/Units 06:41 06:41 RBC 3.15 L (4.2-5.4) M/mm3 Hgb 9.5 L (12.5-16.0) gm/dL Hct 28.4 L (37.0-47.0) % Plt Count 115 L (150-450) K/mm3 Immature Gran % (Auto) 0.60 H (0.001-0.429) % Immature Gran # (Auto) 0.06 H (0.000-0.0310) K/mm3 Lymphocytes % 16.4 L (20-51) % Neutrophils # 7.1 H (1.3-6.0) K/mm3 Random Glucose 148 H D (70-110) mg/dL Alkaline Phosphatase 42 L (50-170) U/L Total Protein 6.1 L (6.2-8.2) gm/dL Albumin 2.5 L (3.4-5.0) gm/dl Cauti Physician Documentation - Urinary Catheter Management Urethral ([place]) Date of Insertion: 05/15/20 Time of Insertion: 01:41 Date of Removal: 05/16/20 Time of Removal: 08:33 Assessment/Plan - Problems/Diagnosis (1) Intertrochanteric fracture of left femur Problem: Acute Qualifiers: Encounter type: subsequent encounter Fracture type: closed Fracture alignment: displaced Fracture healing: with routine healing Qualified Code(s): S72.142D - Displaced intertrochanteric fracture of left femur, subsequent encounter for closed fracture with routine healing Narrative: As per prior notes, continue with 50% weightbearing, range of motion as tolerated, keep wounds dry, continue 6 weeks of DVT prophylaxis, we will see her back in 2 weeks. With x-rays
[2020-05-18 14:42] VITALS: BP 125/57
== END 2020-05-18 15:25 | disposition home or self-care (01) | DRG 482 ==
LOC: ER 22:39 → MS 05-15 00:52
PROVIDERS: ADMIT Internal Medicine; ATTEND Internal Medicine